=== PATIENT | male | born 1990 | race Caucasian/White ===

== ENCOUNTER 2017-07-23 22:01 | Emergency (ER) | payer OTHER ==
[2017-07-23 22:10] VITALS: BP 98/56; PULSE 100; RESP 20; TEMP 97.5; O2SAT 96
[2017-07-23 22:15] VITALS: BP 102/55; PULSE 102; RESP 18; O2SAT 100
[2017-07-23] MEDS ORDERED: MORPHINE SULFATE 4 MG/ML INJ IV PUSH ONE (22:15)
[2017-07-23] MEDS ORDERED: SODIUM CHLOR 0.9% 1000 ML INJ 1,000 ML IV ONE ×2 (22:15)
[2017-07-23] MEDS ORDERED: SODIUM CHLORIDE 0.9% FLUSH 10 ML FLUSH IV FLUSH PRN (22:15)
[2017-07-23] MEDS ORDERED: ONDANSETRON HCL 4 MG/2 ML VIAL IV PUSH ONE (22:15)
[2017-07-23 22:24] VITALS: O2SAT 100
--- NOTE | 2017-07-23 22:28 | PD ---
HPI Chief Complaint: Abdominal Pain Time Seen by Provider: 22:11 Travel History International Travel<30 days: No Contact w/Intl Traveler<30days: No Traveled to known affect area: No History of Present Illness HPI 26-year-old male presents to the emergency department with several hours of progressively worsening lower abdominal pain midline and right lower quadrant. Patient's had nausea vomiting. Last bowel movement was prior to onset of symptoms. Patient is felt subjectively feverish without chills. Patient has had previous abdominal surgery due to perforation of the bowel associated with possible accidental ingestion of a piece of metal/wire that embedded in the bowel wall causing perforation several years ago. Patient denies personal history of inflammatory bowel disease Crohn's or ulcerative colitis. Patient's had no diarrhea. No hematemesis no coffee-ground emesis. Patient denies any chronic medical conditions and only one surgery. Patient is allergic to penicillin. No report of recent nonsteroidal anti-inflammatory use no epigastric periumbilical or right upper quadrant pain no flank pain no hematuria. PFSH Past Medical History Narrative Medical Partial colectomy; nursing notes reviewed Medical History: Denies Significant Hx Past Surgical History Abdominal Surgery: Yes (PARTIAL COLECTOMY) Social History Alcohol Use: No Tobacco Use: No Substance Use: No Allergies-Medications (Allergen,Severity, Reaction): Coded Allergies: Penicillins (Verified Allergy, Unknown, UNKNOWN, 07/23/17) Reported Meds & Prescriptions Reported Meds & Active Scripts Active No Active Prescriptions or Reported Medications Review of Systems Except as stated in HPI: all other systems reviewed are Neg General / Constitutional: Positive: Fever (subjective), No: Chills HENT: No: Congestion Cardiovascular: No: Chest Pain or Discomfort Respiratory: No: Shortness of Breath Gastrointestinal: Positive: Nausea, Vomiting, Abdominal Pain, No: Diarrhea, Hematemesis, Hematochezia Genitourinary: No: Dysuria, Flank Pain Musculoskeletal: No: Pain Skin: No Rash Neurologic: No: Weakness Psychiatric: Positive: Anxiety Hematologic/Lymphatic: No: Lymph Node Enlargement Physical Exam Narrative GENERAL: Well-developed well-nourished male in apparent discomfort no respiratory distress resting supine. SKIN: Warm and dry. HEAD: Normocephalic. EYES: No scleral icterus. No injection or drainage. NECK: Supple, trachea midline. No JVD or lymphadenopathy. CARDIOVASCULAR: Regular rate and rhythm without murmurs, gallops, or rubs. RESPIRATORY: Breath sounds equal bilaterally. No accessory muscle use. GASTROINTESTINAL: Abdomen soft, decreased bowel sounds are clear tender with voluntary guarding suprapubic and right lower quadrant distribution, nondistended. MUSCULOSKELETAL: No cyanosis, or edema. BACK: Nontender without obvious deformity. No CVA tenderness. Data Data Last Documented VS Vital Signs Date Time Temp Pulse Resp B/P (MAP) Pulse Ox O2 Delivery O2 Flow Rate FiO2 07/23/17 22:39 18 07/23/17 22:24 100 Room Air 07/23/17 22:10 97.5 100 98/56 (70) Orders Orders Basic Metabolic Panel (Bmp) (07/23/17 22:11) Complete Blood Count With Diff (07/23/17 22:11) Lipase (07/23/17 22:11) Lactic Acid (07/23/17 22:11) Urinalysis - C+S If Indicated (07/23/17 22:11) Ct Abd/Pel W Iv Contrast(Rout) (07/23/17 22:11) Iv Access Insert/Monitor (07/23/17 22:11) Ecg Monitoring (07/23/17 22:11) Oximetry (07/23/17 22:11) Sodium Chloride 0.9% Flush (Ns Flush) (07/23/17 22:15) Chest, Single Ap (07/23/17 22:11) Sodium Chlor 0.9% 1000 Ml Inj (Ns 1000 M (07/23/17 22:15) Ondansetron Inj (Zofran Inj) (07/23/17 22:15) Morphine Inj (Morphine Inj) (07/23/17 22:15) Sodium Chlor 0.9% 1000 Ml Inj (Ns 1000 M (07/23/17 22:15) Labs Laboratory Tests Test 07/23/17 22:15 White Blood Count 12.4 TH/MM3 Red Blood Count 5.49 MIL/MM3 Hemoglobin 16.1 GM/DL Hematocrit 48.7 % Mean Corpuscular Volume 88.7 FL Mean Corpuscular Hemoglobin 29.3 PG Mean Corpuscular Hemoglobin Concent 33.1 % Red Cell Distribution Width 12.7 % Platelet Count 213 TH/MM3 Mean Platelet Volume 9.7 FL Neutrophils (%) (Auto) 85.4 % Lymphocytes (%) (Auto) 6.2 % Monocytes (%) (Auto) 7.6 % Eosinophils (%) (Auto) 0.1 % Basophils (%) (Auto) 0.7 % Neutrophils # (Auto) 10.6 TH/MM3 Lymphocytes # (Auto) 0.8 TH/MM3 Monocytes # (Auto) 0.9 TH/MM3 Eosinophils # (Auto) 0.0 TH/MM3 Basophils # (Auto) 0.1 TH/MM3 CBC Comment DIFF FINAL Differential Comment Blood Urea Nitrogen 15 MG/DL Creatinine 1.30 MG/DL Random Glucose 130 MG/DL Calcium Level 9.3 MG/DL Sodium Level 137 MEQ/L Potassium Level 3.2 MEQ/L Chloride Level 104 MEQ/L Carbon Dioxide Level 22.2 MEQ/L Anion Gap 11 MEQ/L Estimat Glomerular Filtration Rate 68 ML/MIN Lactic Acid Level 3.1 mmol/L Lipase 126 U/L MDM Medical Decision Making Medical Screen Exam Complete: Yes Emergency Medical Condition: Yes Medical Record Reviewed: Yes Interpretation(s) CBC with automated differential mild leukocytosis Chest x-ray no infiltrate or subdiaphragmatic free air Metabolic panel grossly within normal limits except for mild hypokalemia of 3.2 and nonspecific random nonfasting glucose of 1:30 Lactic acid is elevated at 3.1 Differential Diagnosis Abdominal pain, appendicitis, bowel obstruction, intussusception, renal colic, pancreatitis, intestinal colic; also to consider perforated viscous Narrative Course IV access obtained specimens collected and sent for resulting CT ordered patient administered bolus of normal saline along with Zofran 4 mg and morphine sulfate 2 mg IV @ 22:25 patient's mother is at bedside and reports that several years ago patient presented in a similar type manner and at that time is identified he had sustained a perforation of the intestine secondary to residual accidental ingestion of a outdoor grill metal brush bristle that is used to clean the surface of the grill that had presumptively been accidentally ingested Sepsis Criteria SIRS Criteria (2 or more): Heart rate over 90, WBC > 85806, < 4000 or > 10% bands Severe Sepsis (+one): Lactate >2 Scripts No Active Prescriptions or Reported Meds Jennifer Whitten MD Jul 23, 2017 22:28
[2017-07-23 22:30] VITALS: BP 108/57; PULSE 95; RESP 18; O2SAT 100
[2017-07-23 22:31] LABS: AUTOMATED NEUTROPHIL # 10.6 TH/MM3 (1.8-7.7); BASOPHIL # 0.1 TH/MM3 (0-0.2); BASOPHIL % 0.7 % (0.0-2.0); EOSINOPHIL % 0.1 % (0.0-4.0); HEMATOCRIT 48.7 % (39.0-51.0); LYMPH % 6.2 % (9.0-44.0); LYMPHOCYTE # 0.8 TH/MM3 (1.0-4.8); MEAN CELL VOLUME 88.7 FL (80.0-100.0); MEAN CORPUSCULAR HEMOGLOBIN 29.3 PG (27.0-34.0); MEAN CORPUSCULAR HGB CONC 33.1 % (32.0-36.0); MONO % 7.6 % (0.0-8.0); NEUT % 85.4 % (16.0-70.0); PLATELET COUNT 213 TH/MM3 (150-450); RED BLOOD COUNT 5.49 MIL/MM3 (4.50-5.90); RED CELL DISTRIBUTION WIDTH 12.7 % (11.6-17.2); WHITE BLOOD COUNT 12.4 TH/MM3 (4.0-11.0)
[2017-07-23 22:36] LABS: HEMO FLAGS DIFF FINAL
[2017-07-23 22:38] LABS: POTASSIUM 3.2 MEQ/L (3.5-5.1)
[2017-07-23 22:41] LABS: BICARBONATE 22.2 MEQ/L (21.0-32.0)
[2017-07-23 23:15] VITALS: BP 119/63; PULSE 80; RESP 18; TEMP 97.7; O2SAT 100
[2017-07-23] MEDS ORDERED: IOHEXOL 350 MG/ML 10 ML VIAL (for RAD DIAG) IVCONTRAST ONE (23:35)
--- NOTE | 2017-07-23 23:36 | RADRPT ---
EXAM DATE/TIME: 07/23/2017 22:48 [facility] COMPARISON: No previous studies available for comparison. INDICATIONS : Chest pain. MEDICAL HISTORY : None. SURGICAL HISTORY : None. ENCOUNTER: Initial ACUITY: 1 day PAIN SCORE: 8/10 LOCATION: Bilateral lower chest FINDINGS: A single view of the chest demonstrates the lungs to be symmetrically aerated without evidence of mas s, infiltrate or effusion. The cardiomediastinal contours are unremarkable. Osseous structures are intact. CONCLUSION: No acute disease. Elvis Juarez MD on July 23, 2017 at 23:34 Board Certified Radiologist. This report was verified electronically.
--- NOTE | 2017-07-23 23:50 | RADRPT ---
EXAM DATE/TIME: 07/23/2017 23:30 [facility] COMPARISON: No previous studies available for comparison. INDICATIONS : Lower abdominal pain. IV CONTRAST: 93 cc Omnipaque 350 (iohexol) IV ORAL CONTRAST: No oral contrast ingested. RADIATION DOSE: 4.83 CTDIvol (mGy) MEDICAL HISTORY : None SURGICAL HISTORY : Colon resection. ENCOUNTER: Initial ACUITY: 1 day PAIN SCALE: 8/10 LOCATION: abdomen TECHNIQUE: Volumetric scanning of the abdomen and pelvis was performed. Using automated exposure control and ad justment of the mA and/or kV according to patient size, radiation dose was kept as low as reasonably achievable to obtain optimal diagnostic quality images. DICOM format image data is available electro nically for review and comparison. FINDINGS: Lung bases are clear. No focal liver lesions. There is periportal edema in the liver. Spleen, adrenal s, kidneys and pancreas unremarkable. Surgical clips are present in the lower abdomen reportedly from prior partial colon resection. There is no bowel obstruction. No free air or free fluid. No adenopat hy. No acute bony abnormalities. CONCLUSION: 1. Periportal edema in the liver. Finding is nonspecific but can be related to hepatitis. 2. No acute findings in the lower abdomen or pelvis. Bowel rosemary right lower quadrant reportedly fr om previous partial colon resection. No bowel obstruction or free fluid. Elvis Juarez MD on July 23, 2017 at 23:43 Board Certified Radiologist. This report was verified electronically.
[2017-07-24 01:04] LABS: BLOOD, URINE NEG (NEG); GLUCOSE,URINE NEG (NEG); KETONE, URINE TRACE mg/dL (NEG); NITRITE,URINE NEG (NEG); PH, URINE 8.5 (5.0-8.5)
[2017-07-24] MEDS ORDERED: POTASSIUM CHLORIDE 20 MEQ CONTROLLED RELEASE TAB PO ONE (01:15)
[2017-07-24 01:21] LABS: URINE COLOR YELLOW (YELLW/STRAW)
[2017-07-24 01:22] LABS: MUCUS URINE MOD /lpf (OCC); SQUAMOUS EPITHELIAL CELL URINE 0-5 /hpf (0-5); WBC, URINE 0-2 /hpf (0-5)
[2017-07-24 01:23] LABS: COMMENT (UR) CULT NOT INDICATED; CULTURE IF INDICATED CULT NOT INDICATED
[2017-07-24 01:46] VITALS: BP 94/54; PULSE 95; RESP 18; O2SAT 98
[2017-07-24 02:15] VITALS: BP 114/63; PULSE 100; RESP 18; O2SAT 98
== END 2017-07-24 03:03 | disposition left against medical advice (07) ==
LOC: PHED 22:01
DX: Z53.21 Procedure and treatment not carried out due to patient leaving prior to being seen by health care provider (principal); R10.30 Lower abdominal pain, unspecified
CPT/HCPCS: 71010; 74177; 80048; 81001; 83605; 83690; 85025; 96361; 96374; 96375; 99285; J2270; J2405; J7030; Q9967